=== PATIENT | female | born 1955 | race Caucasian/White ===

== ENCOUNTER 2017-04-27 10:19 | Emergency (ER) | payer BC ==
[~2017-04-27] VITALS: Ht 170.2 cm; Wt 115.8 kg
[~2017-04-27 10:19] MED LIST: ASPI-390 PO; ESTR0.1D16 TOP; IBUP-1105 PO; MELO7.5T5 PO; NPHA OPB; TOPI50TA16 PO; VSNOPS OPB
[2017-04-27 10:21] VITALS: TEMP 36.5; Ht 170.2 cm; Wt 115.8 kg
[2017-04-27] MEDS ORDERED: ONDANSETRON INJ 2 MG/ML 2 ML VIAL IV STA (10:56)
[2017-04-27] MEDS ORDERED: SODIUM CHLORIDE 0.9% 1000ML 1,000 ML IV STA (10:56)
[2017-04-27] MEDS ORDERED: HYDROmorphone INJ 1 MG/ML SYR IV STA (10:56)
[2017-04-27] MEDS ORDERED: OPTIRAY 320 IV PRN (11:00)
[2017-04-27] MEDS ORDERED: METH-589 PO (11:01)
[2017-04-27] MEDS ORDERED: PROP20TA67 PO (11:01)
[2017-04-27] MEDS ORDERED: ESOM20CA PO (11:01)
--- NOTE | 2017-04-27 11:06 | EMERGENCY ROOM VISIT NOTE ---
History First contact with patient: 10:47 Chief Complaint: ABDOMINAL PAIN Stated Complaint: ABDOMINAL PAIN Nursing Triage Summary: triage note: pt reports lower abd pain "for the past several days." pt reports constipation "my last bm was this morning but it does not feel complete." pt also reports urinary symptoms 'for the past four days i have had urinary burning and pain." History of Present Illness The patient is a 61 year old female who presents to the Emergency Room via private vehicle with complaints of "abdominal pain". The patient states that over the past few days she has felt what she describes as "twinges" in the lower abdomen region. She states that yesterday afternoon is significantly increased level of pain. She rates her current pain as an 8/10. She states she has a history of diverticulitis and this feels similar. There is also burning with urination. She also notes she said this years ago as well. She states that she also has a history of bowel resection secondary to recurrent diverticulitis. She has been treated in the past with Augmentin successfully. She also notes perhaps minimal blood in the urine. She denies any blood in the stool. She denies any diarrhea. She denies any vaginal discharge. She denies any chest pain, shortness of breath, recent antibiotic use. Review of Systems A complete 10-point Review of Systems was discussed with the patient, with pertinent positives and negatives listed in the History of Present Illness. All remaining Review of Systems questions can be considered negative unless otherwise specified. Past Medical/Surgical History Medical Problems: (1) Migraine (2) recurrent diverticulitis Surgical Problems: (1) History of appendectomy (2) History of (3) History of partial hysterectomy (4) Hx of laparoscopic gastric banding Family History Mother with CAD. Social History Smoking Status: Never Smoker Alcohol Use: none Drug Use: none Marital Status: Social History: Patient lives with . Current/Historical Medications Scheduled Amoxicillin & Pot Clavulanate (Augmentin 875-125 mg), 1 TAB PO BID Ethtnne-Ayimmvxjjgaed-Fwepaxim (Excedrin Migraine), 1 TAB PO UD Estradiol (Climara), 1 PATCH TOP WK Methimazole (Methimazole ), 5 MG PO TID Propranolol (Inderal), 20 MG PO BID Scheduled PRN Esomeprazole Magnesium (Nexium), 20 MG PO DAILY PRN for ACID REFLUX Ibuprofen (Ibuprofen), 400 MG PO Q6 PRN for Pain Naphazoline/Pheniramine (Naphcon-A), 1 DROP OPB UD PRN for PRN Oxycodone Ir (Roxicodone Ir), 1-2 TAB PO Q4H PRN for Pain Tetrahydrozoline HCl (Visine), 1 DROP OPB UD PRN for PRN Allergies Coded Allergies: No Known Allergies (Unverified , 04/27/17) Physical Exam Vital Signs Date Time Temp Pulse Resp B/P (MAP) Pulse Ox O2 Delivery O2 Flow Rate FiO2 04/27/17 14:40 107 20 138/84 97 Room Air 04/27/17 13:00 109 20 137/105 99 Room Air 04/27/17 12:30 100 21 96 Room Air 04/27/17 12:07 109 04/27/17 11:30 105 18 139/100 97 Room Air 04/27/17 11:28 97 Room Air 04/27/17 10:21 36.5 110 18 138/81 97 Room Air Physical Exam VITAL SIGNS - Vital signs and nursing notes were reviewed. Patient is afebrile , normotensive, tachycardic at a rate of 110 bpm, and is saturating well on room air 97%. GENERAL -61-year-old female appearing her stated age who is in no acute distress. Communicates well with provider and answers questions appropriately. SKIN - Without rashes. No petechial rashes. HEAD - NC/AT. LUNGS - Chest wall symmetric without accessory muscle use, intercostals retractions, or central cyanosis. Normal vesicular breath sounds CTA B/L. No wheezes, rales, or rhonchi appreciated. CARDIAC - RRR with S1/S2. No murmur, rubs, or gallops appreciated. ABDOMEN - Abdominal contour without pulsations or visible masses. BS normoactive all four quadrants. There is inferior umbilical and suprapubic tenderness. No palpable masses, hepatosplenomegaly, or ascites noted. No CVA tenderness. Medical Decision & Procedures ER Provider Diagnostic Interpretation: CT ABD/PELVIS IV AND ORAL CONT CLINICAL HISTORY: Lower quadrant abdominal pain, hx diverticulitis and surgery COMPARISON STUDY: None. TECHNIQUE: Following the IV administration of 92 mL of Optiray-320, CT scan of the abdomen and pelvis was performed from the lung bases to the proximal femurs. Images are reviewed in the axial, sagittal, and coronal planes. IV contrast was administered without complication. CT DOSE: 1688.96 mGy.cm FINDINGS: Lower chest: There are minor lingular atelectatic changes. Liver: The contrast-enhanced liver is normal in size, contour, and attenuation. There is no intrahepatic biliary ductal dilatation. The hepatic veins and portal veins are patent. Gallbladder: Unremarkable. Spleen: Normal in size and attenuation. Pancreas: Unremarkable. Adrenal glands: Unremarkable. Kidneys: There is no hydronephrosis. There is a small cortical scar involving the posterior aspect of the mid to upper pole the left kidney. There is a 9 mm hypodensity within the lower pole the left kidney. This exceeds water attenuation and is therefore indeterminate. Given its small size, may similarly represent a small cyst. There is a second to small to characterize 6 mm hypodensity within the lower pole the left kidney. 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 Bowel: There are no transition zones indicate bowel obstruction. There are no findings to indicate acute appendicitis. There are postsurgical changes present within the sigmoid colon. There is a focus of acute diverticulitis at the level of the splenic flexure. There is bowel wall thickening, infiltration the pericolonic fat, as well as an inflamed diverticulum. Peritoneum: There is umbilical hernia containing fat as well as a portion of small bowel. No obstructive changes are evident. There is a supraumbilical fat-containing ventral hernia as well. Vasculature: The abdominal aorta is normal in course and caliber. Adenopathy: None. Pelvic viscera: The uterus is surgically absent. Skeletal structures: No destructive osseous lesions are seen. IMPRESSION: 1. Acute diverticulitis at the level of the splenic flexure. No evidence of peridiverticular abscess 2. No evidence of bowel obstruction. No evidence of free air. Electronically signed by: Elliott Vela M.D. 04/27/2017 1:59 PM Dictated Date/Time: 04/27/2017 1:53 PM Laboratory Results 04/27/17 11:10 Red Blood Count 4.58, Mean Corpuscular Volume 80.3, Mean Corpuscular Hemoglobin 26.9, Mean Corpuscular Hemoglobin Concent 33.4, Mean Platelet Volume 9.2, Neutrophils (%) (Auto) 75.5, Lymphocytes (%) (Auto) 14.8, Monocytes (%) (Auto) 8.0, Eosinophils (%) (Auto) 1.4, Basophils (%) (Auto) 0.2, Neutrophils # (Auto) 6.96, Lymphocytes # (Auto) 1.37, Monocytes # (Auto) 0.74, Eosinophils # (Auto) 0.13, Basophils # (Auto) 0.02 04/27/17 11:10 Test 04/27/17 11:05 04/27/17 11:10 Urine Color YELLOW Urine Appearance CLEAR (CLEAR) Urine pH 5.0 (4.5-7.5) Urine Specific [place] 1.014 (1.000-1.030) Urine Protein NEG (NEG) Urine Glucose (UA) NEG (NEG) Urine Ketones NEG (NEG) Urine Occult Blood NEG (NEG) Urine Nitrite NEG (NEG) Urine Bilirubin NEG (NEG) Urine Urobilinogen NEG (NEG) Urine Leukocyte Esterase NEG (NEG) White Blood Count 9.23 K/uL (4.8-10.8) Red Blood Count 4.58 M/uL (4.2-5.4) Hemoglobin 12.3 g/dL (12.0-16.0) Hematocrit 36.8 % (37-47) Mean Corpuscular Volume 80.3 fL (80-100) Mean Corpuscular Hemoglobin 26.9 pg (25-34) Mean Corpuscular Hemoglobin Concent 33.4 g/dl (32-36) Platelet Count 261 K/uL (130-400) Mean Platelet Volume 9.2 fL (7.4-10.4) Neutrophils (%) (Auto) 75.5 % Lymphocytes (%) (Auto) 14.8 % Monocytes (%) (Auto) 8.0 % Eosinophils (%) (Auto) 1.4 % Basophils (%) (Auto) 0.2 % Neutrophils # (Auto) 6.96 K/uL (1.4-6.5) Lymphocytes # (Auto) 1.37 K/uL (1.2-3.4) Monocytes # (Auto) 0.74 K/uL (0.11-0.59) Eosinophils # (Auto) 0.13 K/uL (0-0.5) Basophils # (Auto) 0.02 K/uL (0-0.2) RDW Standard Deviation 40.1 fL (36.4-46.3) RDW Coefficient of Variation 13.6 % (11.5-14.5) Immature Granulocyte % (Auto) 0.1 % Immature Granulocyte # (Auto) 0.01 K/uL (0.00-0.02) Anion Gap 9.0 mmol/L (3-11) Est Creatinine Clear Calc Drug Dose 124.4 ml/min Estimated GFR () 113.2 Estimated GFR (Non- 97.7 BUN/Creatinine Ratio 19.0 (10-20) Calcium Level 8.7 mg/dl (8.5-10.1) Magnesium Level 1.9 mg/dl (1.8-2.4) Total Bilirubin 0.6 mg/dl (0.2-1) Aspartate Amino Transf (AST/SGOT) 18 U/L (15-37) Alanine Aminotransferase (ALT/SGPT) 24 U/L (12-78) Alkaline Phosphatase 93 U/L (45-117) Total Protein 7.1 gm/dl (6.4-8.2) Albumin 3.1 gm/dl (3.4-5.0) Globulin 4.0 gm/dl (2.5-4.0) Albumin/Globulin Ratio 0.8 (0.9-2) Lipase 96 U/L (73-393) Thyroid Stimulating Hormone (TSH) < 0.005 uIu/ml (0.300-4.500) Free Thyroxine 3.85 ng/dl (0.80-1.60) Free Triiodothyronine 14.17 pg/ml (2.30-4.20) Medications Administered Medications (Trade) Dose Ordered Sig/Liz Route Start Time Stop Time Status Last Admin Dose Admin Sodium Chloride 1,000 ml @ 200 mls/hr Q5H STAT IV 04/27/17 10:56 04/27/17 15:21 DC 04/27/17 11:24 200 MLS/HR Ondansetron HCl (Zofran Inj) 4 mg NOW STAT IV 04/27/17 10:56 04/27/17 10:58 DC 04/27/17 11:25 4 MG Ketorolac Tromethamine (Toradol Inj) 30 mg NOW STAT IV 04/27/17 11:07 04/27/17 11:08 DC 04/27/17 11:25 30 MG Amoxicillin/ Clavulanate Potassium (Augmentin Tab) 875 mg ONE STAT PO 04/27/17 14:31 04/27/17 14:33 DC 04/27/17 14:42 875 MG Medical Decision Patient was seen and evaluated as above. After obtaining a thorough history and physical examination there was great concern for potential acute diverticulitis. She also complains with urinary symptoms. IV access was initiated, and the above workup was performed. I do believe that repeat examination via CT is warranted in this case as she has had surgery in the past for recurrent diverticulitis. I do want to rule out perforation and other emergent abnormalities at this time. She was ordered fluids, Zofran and Dilaudid however notes that she would like to drive when she leaves here therefore the Dilaudid was replaced with Toradol. CBC reveals no leukocytosis. Slight anemia noted. CMP reveals chloride high at 108. No other significant electrolyte, kidney abnormalities. Globulin slightly low. TSH is markedly abnormal, however the patient notes that she has stopped her medication for the past week as she has a thyroid uptake scan scheduled for tomorrow at [facility]. I informed her that unfortunately we would have to use iodinated contrast and the CT scan today. Urine is unremarkable. She was informed upon this, and offered a pelvic exam however respectfully declined. I do believe this is appropriate as I feel that the CT scan will likely reveal the cause of her pain. CT scan results as above. Acute diverticulitis noted. Case was discussed with my attending, and subsequently the pharmacist. It was reviewed that she was treated with Augmentin in the past. I will place her upon Augmentin 875 twice a day for 10 days. She was given her first dose here. The remainder was sent to the pharmacy of her choice. She'll be placed upon OxyIR for pain. She was educated upon lifestyle modifications over the next few days for treatment of acute diverticulitis. She was educated upon the importance of follow-up, educated upon worrisome symptoms which to return, had questions prior to discharge, and was discharged home in good condition. The patient is stable, no leukocytosis, afebrile, and I believe can be managed in the outpatient setting. I believe the tachycardia is likely secondary to her hyperthyroid state she has stopped her medications for an examination that is to occur tomorrow. I did speak with our nuclear medicine laboratory who recommends that 30 days past before obtaining the study. She is to call to cancel her appointment, and identify when she can reschedule. She is also to call her guzzler builder regarding beginning her thyroid medication. The CT scan findings were thoroughly discussed with the patient, and she was educated upon follow-up with her family doctor regarding the incidental findings. In evaluation treatment this patient following differential diagnoses were entertained: Acute diverticulitis, UTI, pyelonephritis, perforation, bowel obstruction, hemorrhagic cystitis, among others. CT Drug Monitoring Program Search Results: patient reviewed within database, no issues identified Impression Primary Impression: Acute diverticulitis Departure Information Dispostion Home / Self-Care Condition GOOD Prescriptions Oxycodone Ir (Roxicodone Ir) 5 Mg Tab 1-2 TAB PO Q4H Y for Pain, #15 TAB For Initial Treatment Prov: Keyon Elliott PA-C 04/27/17 Amoxicillin & Pot Clavulanate (Augmentin 875-125 mg) 1 Tab Tab 1 TAB PO BID, #19 TAB Prov: Keyon Elliott PA-C 04/27/17 Referrals Mahin Patel M.D. (PCP) Patient Instructions [facility] Additional Instructions You have been treated in the Emergency Department your Abdominal Pain. Laboratory results and imaging studies have ruled out any emergent causes for your abdominal pain which would warrant admission or surgery. You have been prescribed Oxy IR to be used for pain control. This is a narcotic medication. You cannot drive or consume alcohol while on this medicine. This medicine should only be used for pain that cannot be controlled with over-the- counter pain medicines. You have been prescribed Augmentin to be taken as prescribed. This is an antibiotic. All antibiotics have the potential to cause diarrhea. Stop this medication and contact a medical provider if you were to develop any significant adverse side effects including: wheezing, shortness of breath, passing out, vomiting, or a diffuse rash. Always take antibiotics as directed and COMPLETE the ENTIRE course regardless of the improvement of your symptoms. For pain control, you can use the following lxvo-jjl-jfnnwvj medicines (if >12 yo): - Regular strength (325mg/tab) Tylenol (acetaminophen) 2 tabs every 4-6 hours as needed. Do not exceed 12 tablets in a 24 hour period. Avoid taking more than 3 grams (3000 mg) of Tylenol per day. This includes any other sources of acetaminophen you may take on a regular basis. - Regular strength (200 mg/tab) Advil (ibuprofen) 1-2 tabs every 4-6 hours as needed. Do not exceed a dose of 3200 mg per day. Drink plenty of water and stay well hydrated. As with any trip to the Emergency Department, you should follow-up with your Primary Care Provider from today's visit. Please follow-up regarding the findings of the CT scan as we discussed. Return to the emergency department if your symptoms persist despite treatment plan outlined above or if the following symptoms occur: increased fevers, chills , worsening nausea/vomiting, blood in your stool or urine. Please return to the emergency department with any new/concerning symptoms. CT ABD/PELVIS IV AND ORAL CONT CLINICAL HISTORY: Lower quadrant abdominal pain, hx diverticulitis and surgery COMPARISON STUDY: None. TECHNIQUE: Following the IV administration of 92 mL of Optiray-320, CT scan of the abdomen and pelvis was performed from the lung bases to the proximal femurs. Images are reviewed in the axial, sagittal, and coronal planes. IV contrast was administered without complication. CT DOSE: 1688.96 mGy.cm FINDINGS: Lower chest: There are minor lingular atelectatic changes. Liver: The contrast-enhanced liver is normal in size, contour, and attenuation. There is no intrahepatic biliary ductal dilatation. The hepatic veins and portal veins are patent. Gallbladder: Unremarkable. Spleen: Normal in size and attenuation. Pancreas: Unremarkable. Adrenal glands: Unremarkable. Kidneys: There is no hydronephrosis. There is a small cortical scar involving the posterior aspect of the mid to upper pole the left kidney. There is a 9 mm hypodensity within the lower pole the left kidney. This exceeds water attenuation and is therefore indeterminate. Given its small size, may similarly represent a small cyst. There is a second to small to characterize 6 mm hypodensity within the lower pole the left kidney. 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 Bowel: There are no transition zones indicate bowel obstruction. There are no findings to indicate acute appendicitis. There are postsurgical changes present within the sigmoid colon. There is a focus of acute diverticulitis at the level of the splenic flexure. There is bowel wall thickening, infiltration the pericolonic fat, as well as an inflamed diverticulum. Peritoneum: There is umbilical hernia containing fat as well as a portion of small bowel. No obstructive changes are evident. There is a supraumbilical fat-containing ventral hernia as well. Vasculature: The abdominal aorta is normal in course and caliber. Adenopathy: None. Pelvic viscera: The uterus is surgically absent. Skeletal structures: No destructive osseous lesions are seen.
[2017-04-27] MEDS ORDERED: KETOROLAC TROMETHAMINE 30 MG/ML VIAL IV STA (11:07)
[2017-04-27 11:20] LABS: BASO % 0.2 %; BASO ABS # 0.02 K/uL (0-0.2); COMPLETE YES; EOS % 1.4 %; HEMATOCRIT 36.8 % (37-47); IG% 0.1 %; LYMPH % 14.8 %; LYMPH ABS # 1.37 K/uL (1.2-3.4); MEAN CELL VOLUME 80.3 fL (80-100); MEAN CORPUSCULAR HEMOGLOBIN 26.9 pg (25-34); MEAN CORPUSCULAR HGB CONC 33.4 g/dl (32-36); MEAN PLATELET VOLUME 9.2 fL (7.4-10.4); NEUT % 75.5 %; PLATELET COUNT 261 K/uL (130-400); RED BLOOD COUNT 4.58 M/uL (4.2-5.4); WHITE BLOOD COUNT 9.23 K/uL (4.8-10.8)
[2017-04-27 11:26] LABS: URINE APPEARANCE CLEAR (CLEAR); URINE BILIRUBIN NEG (NEG); URINE COLOR YELLOW; URINE NITRITE NEG (NEG); URINE SPECIFIC GRAVITY 1.014 (1.000-1.030); UROBILINOGEN NEG (NEG); ZZUR CULT IF INDIC CLEAN CATCH NO
[2017-04-27 11:28] VITALS: O2SAT 97
[2017-04-27 11:31] LABS: MANUAL MICROSCOPIC REQUIRED? NO; REVIEW REQ? NO
[2017-04-27 11:37] LABS: ALT/SGPT 24 U/L (12-78); AST/SGOT 18 U/L (15-37); BLOOD UREA NITROGEN 12 mg/dl (7-18); CALCIUM 8.7 mg/dl (8.5-10.1); CARBON DIOXIDE 23 mmol/L (21-32); CHLORIDE 108 mmol/L (98-107); CREATININE 0.64 mg/dl (0.60-1.20); GLUCOSE 97 mg/dl (70-99); MAGNESIUM 1.9 mg/dl (1.8-2.4); POTASSIUM 4.3 mmol/L (3.5-5.1); SODIUM 140 mmol/L (136-145)
[2017-04-27 11:48] LABS: ALB/GLOB RATIO 0.8 (0.9-2); ALKALINE PHOSPHATASE 93 U/L (45-117); THYROID STIMULATING HORMONE < 0.005 uIu/ml (0.300-4.500)
--- NOTE | 2017-04-27 14:01 | DIAGNOSTIC IMAGING REPORT ---
CT ABD/PELVIS IV AND ORAL CONT CLINICAL HISTORY: Lower quadrant abdominal pain, hx diverticulitis and surgery COMPARISON STUDY: None. TECHNIQUE: Following the IV administration of 92 mL of Optiray-320, CT scan of the abdomen and pelvis was performed from the lung bases to the proximal femurs. Images are reviewed in the axial, sagittal, and coronal planes. IV contrast was administered without complication. CT DOSE: 1688.96 mGy.cm FINDINGS: Lower chest: There are minor lingular atelectatic changes. Liver: The contrast-enhanced liver is normal in size, contour, and attenuation. There is no intrahepatic biliary ductal dilatation. The hepatic veins and portal veins are patent. Gallbladder: Unremarkable. Spleen: Normal in size and attenuation. Pancreas: Unremarkable. Adrenal glands: Unremarkable. Kidneys: There is no hydronephrosis. There is a small cortical scar involving the posterior aspect of the mid to upper pole the left kidney. There is a 9 mm hypodensity within the lower pole the left kidney. This exceeds water attenuation and is therefore indeterminate. Given its small size, may similarly represent a small cyst. There is a second to small to characterize 6 mm hypodensity within the lower pole the left kidney. 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 Bowel: There are no transition zones indicate bowel obstruction. There are no findings to indicate acute appendicitis. There are postsurgical changes present within the sigmoid colon. There is a focus of acute diverticulitis at the level of the splenic flexure. There is bowel wall thickening, infiltration the pericolonic fat, as well as an inflamed diverticulum. Peritoneum: There is umbilical hernia containing fat as well as a portion of small bowel. No obstructive changes are evident. There is a supraumbilical fat-containing ventral hernia as well. Vasculature: The abdominal aorta is normal in course and caliber. Adenopathy: None. Pelvic viscera: The uterus is surgically absent. Skeletal structures: No destructive osseous lesions are seen. IMPRESSION: 1. Acute diverticulitis at the level of the splenic flexure. No evidence of peridiverticular abscess 2. No evidence of bowel obstruction. No evidence of free air. Electronically signed by: Elliott Vela M.D. 04/27/2017 1:59 PM Dictated Date/Time: 04/27/2017 1:53 PM
[2017-04-27] MEDS ORDERED: AMOXICILLIN/CLAVULANATE TAB 875 MG TAB PO STA (14:31)
[2017-04-27 14:40] VITALS: BP 138/84; PULSE 107; O2SAT 97
[2017-04-27] MEDS ORDERED: AMOX875T PO (14:52)
[2017-04-27] MEDS ORDERED: OXYC1TAB3 PO (14:52)
== END 2017-04-27 15:00 | disposition home or self-care (01) ==
LOC: C.EDB 10:20
DX: K57.32 Diverticulitis of large intestine without perforation or abscess without bleeding (principal); R10.30 Lower abdominal pain, unspecified; R30.0 Dysuria

== ENCOUNTER 2018-06-21 13:24 | Emergency (ER) | payer BC ==
[~2018-06-21] VITALS: Ht 170.2 cm; Wt 122.7 kg
[~2018-06-21 13:24] MED LIST changes: +ESOM20CA PO; -MELO7.5T5 PO; +METH-589 PO; +PROP20TA67 PO; -TOPI50TA16 PO
[2018-06-21 13:27] VITALS: TEMP 36.4; Ht 170.2 cm; Wt 122.7 kg
[2018-06-21 14:05] LABS: BASO % 0.3 %; BASO ABS # 0.02 K/uL (0-0.2); EOS % 1.9 %; EOS ABS # 0.14 K/uL (0-0.5); HEMATOCRIT 41.7 % (37-47); HEMOGLOBIN 14.1 g/dL (12.0-16.0); IG# 0.01 K/uL (0.00-0.02); LYMPH % 26.8 %; LYMPH ABS # 1.94 K/uL (1.2-3.4); MEAN CORPUSCULAR HEMOGLOBIN 29.1 pg (25-34); MEAN CORPUSCULAR HGB CONC 33.8 g/dl (32-36); MEAN PLATELET VOLUME 9.8 fL (7.4-10.4); MONO % 4.8 %; MONO ABS # 0.35 K/uL (0.11-0.59); NEUT % 66.1 %; NEUT ABS # 4.79 K/uL (1.4-6.5); PLATELET COUNT 271 K/uL (130-400); RED CELL DISTRIBUTION WIDTH SD 43.6 fL (36.4-46.3); WHITE BLOOD COUNT 7.25 K/uL (4.8-10.8)
[2018-06-21 14:17] LABS: INR 0.9 (0.9-1.1); PTT PATIENT 26.3 SECONDS (21.0-31.0)
--- NOTE | 2018-06-21 14:25 | DIAGNOSTIC IMAGING REPORT ---
L VENOUS DOPP LOWER EXT UNILAT CLINICAL HISTORY: L lower leg pain/swelling pain. Edema. TECHNIQUE: Venous Doppler COMPARISON STUDY: None FINDINGS: No major venous structures are patent. No evidence for acute deep venous thrombosis. Within the medial calf is a soft tissue collection measuring 7 x 1 x 4 cm. Densely represents a soft tissue hematoma. IMPRESSION: 1. Study is negative for deep venous thrombosis. 2. Soft tissue hematoma within the calf. The above report was generated using voice recognition software. It may contain grammatical, syntax or spelling errors. Electronically signed by: Chucky Trujillo M.D. 06/21/2018 2:24 PM Dictated Date/Time: 06/21/2018 2:22 PM
[2018-06-21 14:27] LABS: CALCIUM 8.9 mg/dl (8.5-10.1); CREATININE 1.01 mg/dl (0.60-1.20); POTASSIUM 3.9 mmol/L (3.5-5.1)
[2018-06-21] MEDS ORDERED: LEVO125T72 PO (15:02)
[2018-06-21] MEDS ORDERED: ATOR10TA82 PO (15:02)
[2018-06-21 15:05] VITALS: BP 163/113; PULSE 69; O2SAT 98
--- NOTE | 2018-06-21 16:41 | EMERGENCY ROOM VISIT NOTE ---
ED Visit Note First contact with patient: 13:29 Chief Complaint: Left lower leg pain. History of Present Illness: Ms. Salazar is a 63-year-old white female who ambulates into the ED complaining of posterior left lower leg pain. Historically patient denies any previous significant injuries, trauma or clots to the left lower leg. Patient reports she arrived home from a flight from [place] last Wednesday; approximately 12 hour flight. On Wednesday she reports she started having posterior left lower leg pain swelling and tenderness. She reports initially it was mild gradually increased in intensity. She currently describes her pain as an achy sensation and then becomes sharp with ambulation. She rates her discomfort 7/10. Her pain is nonradiating. Her pain worsens with ambulation, palpation and plantar flexion and dorsiflexion of the ankle. She has been using ibuprofen with minimal relief of her discomfort. Associated with her pain she reports she has not been having paresthesias over the posterior lower leg since returning last Wednesday. She denies recent or repetitive trauma, fevers, chills, sweats, skin eruptions, skin color changes, lightheadedness, dizziness, upper respiratory tract symptoms , cough, wheezing, shortness of breath, chest pain, palpitations, cramping, current estrogen and tobacco use, dependent edema, leg weakness. Review of Systems: As noted above in history of present illness. 8 body systems were reviewed and found to be negative as noted above. Past Medical History: (1) Migraine (2) recurrent diverticulitis Surgical Problems: (1) History of appendectomy (2) History of (3) History of partial hysterectomy (4) Hx of laparoscopic gastric banding Current Medications: Medications Dose Route/Sig Max Daily Dose Days Date Category Lipitor (Atorvastatin Calcium) 10 Mg Tab 10 Mg PO DAILY 06/21/18 Reported Synthroid (Levothyroxine Sodium) 125 Mcg Tab 125 Mcg PO DAILY 06/21/18 Reported Nexium (Esomeprazole Magnesium) 20 Mg Capcr 20 Mg PO DAILY PRN 04/27/17 Reported Ibuprofen 200 Mg Tab 400 Mg PO Q6 PRN 11/18/15 Reported Climara (Estradiol) 0.1 Mg/24 Hr Dis 1 Patch TOP WK 11/18/15 Reported Allergies to Medications: Patient denies. Social History: Patient is currently employed; she feels safe in her home environment; she denies tobacco and alcohol use. Physical Examination: Vital Signs: Date Time Temp Pulse Resp B/P (MAP) Pulse Ox O2 Delivery O2 Flow Rate FiO2 06/21/18 15:05 69 18 163/113 98 06/21/18 13:27 36.4 84 20 166/92 98 Room Air GENERAL: 63-year-old female in mild distress due to pain, nontoxic-appearing, afebrile and hemodynamically stable. NEUROLOGICAL: Awake, alert and oriented to person, place and time. Answering questions appropriately and following commands. Limped gait. Good hand eye coordination. No focal motor sensory deficits. SKIN: Warm, dry and pink. No soft tissue eruptions or trauma noted. HEENT: Atraumatic and normocephalic. THORAX: Lungs sounds are clear to auscultation and equal bilaterally with symmetrical chest wall. No wheezing, rales or rhonchi. No crepitus, tenderness , subcutaneous air or deformities noted. No increased respiratory effort or rate. HEART: Regular rate and rhythm. No gallops, rubs or murmurs are appreciated. ABDOMEN: Soft and nontender. Positive bowel sounds in all quadrants. No guarding, rigidity or organomegaly. EXTREMITIES: Moves all extremities well on command and with purpose. All distal neurovascular statuses are intact and equal bilaterally. Left Lower Extremity: Tenderness over the mid posterior calf area. This area is firm to palpation. Is not erythematous or edematous. No appearance of cellulitis. No palpable cords. No tenderness throughout the knee, ankle or foot. Full range of motion in flexion and extension of the knee in plantarflexion and dorsiflexion of the ankle against resistance. Throughout the lower legs skin was warm and pink and capillary refill was brisk. She is able to distinguish light sensations to all dermatomes. ED Course: Patient is assessed as noted above. Patient's medication list was reviewed. Laboratory Testing: Test 06/21/18 13:30 Range/Units White Blood Count 7.25 4.8-10.8 K/uL Red Blood Count 4.85 4.2-5.4 M/uL Hemoglobin 14.1 12.0-16.0 g/dL Hematocrit 41.7 37-47 % Mean Corpuscular Volume 86.0 80-100 fL Mean Corpuscular Hemoglobin 29.1 25-34 pg Mean Corpuscular Hemoglobin Concent 33.8 32-36 g/dl Platelet Count 271 130-400 K/uL Mean Platelet Volume 9.8 7.4-10.4 fL Neutrophils (%) (Auto) 66.1 % Lymphocytes (%) (Auto) 26.8 % Monocytes (%) (Auto) 4.8 % Eosinophils (%) (Auto) 1.9 % Basophils (%) (Auto) 0.3 % Neutrophils # (Auto) 4.79 1.4-6.5 K/uL Lymphocytes # (Auto) 1.94 1.2-3.4 K/uL Monocytes # (Auto) 0.35 0.11-0.59 K/uL Eosinophils # (Auto) 0.14 0-0.5 K/uL Basophils # (Auto) 0.02 0-0.2 K/uL RDW Standard Deviation 43.6 36.4-46.3 fL RDW Coefficient of Variation 14.0 11.5-14.5 % Immature Granulocyte % (Auto) 0.1 % Immature Granulocyte # (Auto) 0.01 0.00-0.02 K/uL Prothrombin Time 9.8 9.0-12.0 SECONDS Prothromb Time International Ratio 0.9 0.9-1.1 Activated Partial Thromboplast Time 26.3 21.0-31.0 SECONDS Partial Thromboplastin Ratio 1.0 Sodium Level 136 136-145 mmol/L Potassium Level 3.9 3.5-5.1 mmol/L Chloride Level 103 98-107 mmol/L Carbon Dioxide Level 26 21-32 mmol/L Anion Gap 7.0 3-11 mmol/L Blood Urea Nitrogen 17 7-18 mg/dl Creatinine 1.01 0.60-1.20 mg/dl Est Creatinine Clear Calc Drug Dose 79.5 ml/min Estimated GFR () 69.6 Estimated GFR (Non- 60.0 BUN/Creatinine Ratio 16.6 10-20 Random Glucose 100 70-99 mg/dl Calcium Level 8.9 8.5-10.1 mg/dl Left Lower Extremity Venous Doppler Ultrasound: Was reviewed by myself and read by the radiology showing negative for deep vein thrombus but positive for a 7 x 1 x 4 cm soft tissue hematoma. Patient was offered pain medication and refused. Patient was offered a walker and refused. Patient was educated about today's findings and instructed on her treatment plan ; she verbalized understanding land. Clinical Impression: Left calf hematoma. Decision-Making: Initially my differential diagnosis I considered DVT, superficial thrombosis, cellulitis, calf contusion and other causes. Disposition: Patient discharged home in stable condition; prior to departure she was reassessed and subjectively reported she was feeling slightly better and rated her discomfort 6/10. Plan: Patient was encouraged to alternate ibuprofen and acetaminophen every 3 hours as needed for persistent pain and use warm compresses on the areas of pain and swelling. Patient was encouraged to use her mother's walker until pain-free. Patient was encouraged to follow-up with her PCP for recheck if no better in 4- 5 days. Patient was encouraged return the ED for worsening/uncontrolled pain, uncontrolled swelling or any new/concerning symptoms.
== END 2018-06-21 15:03 | disposition home or self-care (01) ==
LOC: C.EDB 13:25 → C.EDD 15:03
DX: S80.12XA Contusion of left lower leg, initial encounter (principal); X58.XXXA Exposure to other specified factors, initial encounter